=== PATIENT | female | born 1940 | race Hispanic/Latino ===

== ENCOUNTER 2021-04-21 07:52 | Day surgery (SDC) | payer OTHER, MEDICARE ==
[2021-04-18 12:52] LABS: Absolute Lymphocytes (CBC) 1.2 K/uL (0.7-4.9); Basophils % 0.6 % (0-1.3); Hematocrit 39.5 % (36.0-45.0); Lymphocytes % 27.4 % (15.3-44.8); RBC Red Blood Cell Count 4.18 M/uL (3.86-4.86)
--- NOTE | 2021-04-18 13:31 | RAD REPORT ---
EXAM DESCRIPTION: RAD - Chest Pa And Lat (2 Views) - 04/18/2021 1:09 pm CLINICAL HISTORY: pre-op sds, chest soft tissue mass removal pending COMPARISON: Two view chest December 10 TECHNIQUE: Frontal and lateral views of the chest were obtained. FINDINGS: The lungs are clear of an acute infiltrate or mass. Interstitial scarring changes are pres ent more notable in the lateral mid right lung field. This is a stable presentation. No hilar mass or lymphadenopathy. Heart size is normal and central vasculature is within normal limits. No pleural effusion or pneumothorax seen. No acute bone finding. Bones do appear osteopenic with accentuated k yphosis. Degenerative calcifications are seen along the left shoulder joint greater tuberosity. No ao rtic abnormality. IMPRESSION: No acute cardiopulmonary process. No significant change from comparison study.
[2021-04-21] MEDS: Ringers Lactate 1,000 ML IV ONE ×2 (08:30→08:50)
--- NOTE | 2021-04-21 09:16 | P.BOP ---
Preoperative diagnosis: chest wall tender subQ mass 3x3cm Postoperative diagnosis: same Primary procedure: Excisional biopsy chest wall tender subQ mass 3x3cm Estimated blood loss: <10cc Specimen: chest wall subQ mass Findings: mass Anesthesia: General Complications: None Transferred to: Recovery Room Condition: Good
[2021-04-21] MEDS ORDERED: HYDROCORTISONE SUC 100 MG INJ ONE (09:29)
[2021-04-21] MEDS ORDERED: FENTANYL CITR 100 MCG/2 ML ONE (09:30)
[2021-04-21] MEDS ORDERED: LIDOCAINE 2% MPF 5 ML VIAL ONE (09:30)
[2021-04-21] MEDS ORDERED: CEFAZOLIN/NS 1gm 1 GM/50 ML BAG ONE (09:30)
[2021-04-21] MEDS ORDERED: propofoL 200 MG/20 ML VIAL IV ONE (09:31)
[2021-04-21] MEDS ORDERED: ONDANSETRON 4 MG/2 ML VIAL ONE (09:31)
[2021-04-21] MEDS ORDERED: GLYCOPYRROLATE 0.2 MG/ML SYR ONE (09:32)
[2021-04-21] MEDS ORDERED: BUPIVACAINE 0.5% PF 10 ML VIAL ONE (09:38)
[2021-04-21] MEDS ORDERED: KETOROLAC 30 MG/ML INJ ONE (10:27)
--- NOTE | 2021-04-21 11:29 | OP ---
Date of Procedure: 04/21/2021 Surgeon: Harjinder cMqueen MD Preoperative Diagnosis: Chest wall subcutaneous tender mass 3 x 3 cm. Postoperative Diagnosis: Chest wall subcutaneous tender mass 3 x 3 cm. Procedure: Excisional biopsy of chest wall tender subcutaneous mass 3 x 3 cm. Specimen: Subcutaneous mass. Findings: Subcutaneous mass that does not penetrate the muscle or bone. It is on the chest wall reg ion just at the border between the chest and breast. Anesthesia: General plus local. Indication: This is the case of a female, who comes to us with a chest wall mass right at the origin of the breast and chest area. The patient claimed that she had a mammogram and is already negative. Did not take this mass. It is still there. It is obvious, it is palpable. She states increasing in size and she wants that removed. The benefits, alternatives, and risks of excisional biopsy of ch est wall mass fully explained, which include, but not limited to infection, bleeding, damage to adjac ent structures, anesthesia complication, recurrence, WA, and even . She understands she might n eed more than one surgical intervention. She understood this may not relieve any symptoms. She sign ed a consent. The area of concern was marked by me and the patient in the holding room. Procedure In Detail: The patient was brought to the operating room, placed in supine position. Anes thesia was done without complication. A time-out was called. Chest area was prepped and draped in u sual sterile fashion. Local anesthesia was applied followed by sharp incision in a wedge fashion. I ncision was carried down to deep subcutaneous tissue. This mass was right at the edge of the beginni ng of the breast and at the end of the midsternal region, so the mass was completely excised. I did not see the muscle or bone exposed or involved. Area was irrigated, hemostasis was obtained, and the area was closed with 3-0 chromic and subcutaneous tissue and then 3-0 chromic in a subcuticular fash ion with Steri-Strips on top. This was after hemostasis and irrigation was done. The patient tolera jhoana the procedure well. The patient was sent to recovery in stable condition. PRECIOUS/SUHAS Voice ID: [id number] Report ID: [id number]
--- NOTE | 2021-04-21 11:34 | DS ---
Diagnosis: Tender chest wall subcutaneous mass. Procedure: Excisional biopsy of tender chest wall subcutaneous mass. Disposition: Home. Activity: As tolerated. No heavy lifting. Plan: Follow up in my office in 1 week. Call for appointment at [phone]. Keep area dry for 48 marcos rs, then may shower. Keep Steri-Strip intact. Medications: Include Tylenol No.3 q.4 hours p.r.n. pain. PRECIOUS/SUHAS Voice ID: [id number] Report ID: [id number]
[2021-04-21] MEDS ORDERED: CODEINE 30MG/APAP 300MG TAB ONE (11:41)
[2021-04-21 14:03] VITALS: O2SAT 100
[2021-04-21 14:06] VITALS: BP 142/73; TEMP 98.1
== END 2021-04-21 11:25 | disposition home or self-care (01) ==
LOC: OR 07:52
PROVIDERS: ATTEND Surgery
PROC: 0JB60ZZ Excision of Chest Subcutaneous Tissue and Fascia, Open Approach (ICD-10-PCS; principal; 2021-04-21 09:15)
DX: L72.0 Epidermal cyst (principal); Z20.822 Contact with and (suspected) exposure to COVID-19
CPT/HCPCS: 85025; 80048; 36415; 88304; 71046; 11403; U0003; J2704; J3010; J0690; J7120; J1720; J2405; 88305

== ENCOUNTER 2021-10-02 21:41 | Emergency (ER) | payer OTHER, MEDICARE ==
--- OUTSIDE RECORDS SUMMARY | 2021-10-02 21:44 | XMS REPORT | Continuity of Care Document ---
:1940 Author Organization [facility] t Address [address] [place] [address] [place] [id number] Care Team Providers Name Role Phone Unavailable Unavailable Unavailable Problems This patient has no known problems. Allergies, Adverse Reactions, Alerts This patient has no known allergies or adverse reactions. Medications This patient has no known medications. Procedures This patient has no known procedures. Encounters Start End Encounter Admission Attending Care Care Encounter Source Date/Time Date/Time Type Type Clinicians Facility Department ID 2019-02-22 2019-02-22 Outpatient [facility] [id number] BL 09:19:00 09:19:00 Results This patient has no known results.
[2021-10-02 22:57] LABS: Absolute Lymphocytes (CBC) 1.1 K/uL (0.7-4.9); Hematocrit 35.2 % (36.0-45.0); Lymphocytes % 26.6 % (15.3-44.8); MPV 8.5 fL (7.6-11.3); RBC Red Blood Cell Count 3.67 M/uL (3.86-4.86)
[2021-10-02 23:18] LABS: Albumin 3.7 g/dL (3.4-5.0); Bilirubin Total 0.6 mg/dL (0.2-1.0); Potassium 3.8 mmol/L (3.5-5.1); Protein, Total 7.2 g/dL (6.4-8.2)
--- NOTE | 2021-10-03 02:05 | ER ---
Nurse's Notes [facility] Name: Gisselle Orozco Age: 80 yrs Sex: Female : 1940 Arrival Date: 10/02/2021 Time: 21:45 Bed 8 Private MD: Diagnosis: GI Bleed/ Gastrointestinal hemorrhage, unspecified Presentation: 10/02 21:50 Chief complaint: Patient states: I have had 6 bloody bowel movement since yesterday. jb4 Anything I eat I have diarrhea. I have had liquid stool on Wednesday and after that it was just soft. Coronavirus screen: At this time, the client does not indicate any symptoms associated with coronavirus-19. Ebola Screen: No symptoms or risks identified at this time. Initial Sepsis Screen: Does the patient meet any 2 criteria? No. Patient's initial sepsis screen is negative. Does the patient have a suspected source of infection? No. Patient's initial sepsis screen is negative. Risk Assessment: Do you want to hurt yourself or someone else? Patient reports no desire to harm self or others. Onset of symptoms was October 02, 2021. Transition of care: patient was not received from another setting of care. 21:50 Method Of Arrival: Ambulatory jb4 21:50 Acuity: GABRIEL 3 jb4 Historical: - Allergies: 21:55 No Known Allergies; jb4 - Home Meds: 21:55 Bactrim DS 800-160 mg Oral tab [Active]; Famotidine Oral [Active]; Prolia subcutaneous jb4 [Active]; Metoprolol Tartrate Oral [Active]; Prednisone Oral [Active]; rosuvastatin oral [Active]; Actemra subcutaneous [Active]; leflunomide oral [Active]; - PMHx: 21:55 GERD; Hyperlipidemia; Hypertension; Glaucoma; jb4 - PSHx: 21:55 lung biopsy; Cyst removal from chest; Appendectomy; Tonsillectomy; partial hysterectomy;jb4 - Immunization history:: Adult Immunizations up to date. - Social history:: Smoking status: Patient denies any tobacco usage or history of. Patient/guardian denies using alcohol, street drugs. Screenin:02 Abuse screen: Denies threats or abuse. Denies injuries from another. Nutritional lg3 screening: No deficits noted. Tuberculosis screening: No symptoms or risk factors identified. Fall Risk None identified. Assessment: 23:02 General: Appears in no apparent distress. comfortable, Behavior is calm, cooperative. lg3 Pain: Denies pain. Neuro: No deficits noted. Level of Consciousness is awake, alert, obeys commands, Oriented to person, place, time, situation. Cardiovascular: No deficits noted. Denies chest pain, shortness of breath. Respiratory: No deficits noted. Airway is patent Trachea midline Respiratory effort is even, unlabored, Respiratory pattern is regular, symmetrical. GI: Reports rectal bleeding, bloody stool. : No deficits noted. No signs and/or symptoms were reported regarding the genitourinary system. EENT: No deficits noted. No signs and/or symptoms were reported regarding the EENT system. Derm: No deficits noted. No signs and/or symptoms reported regarding the dermatologic system. Skin is intact, is healthy with good turgor, Skin is dry, Skin is pink, warm \T\ dry. Musculoskeletal: No deficits noted. No signs and/or symptoms reported regarding the musculoskeletal system. Circulation, motion, and sensation intact. Capillary refill < 3 seconds, Range of motion: intact in all extremities. 10/03 00:30 Reassessment: Pt transported to CT scan. ll3 00:55 Reassessment: No changes from previously documented assessment. Patient and/or family ll3 updated on plan of care and expected duration. Pain level reassessed. Patient is alert, oriented x 3, equal unlabored respirations, skin warm/dry/pink. Pt states she is hungry, ERP notified, DR requested we wait for CT results before eating any food, PT notified. 02:05 Reassessment: No changes from previously documented assessment. Patient and/or family ll3 updated on plan of care and expected duration. Pain level reassessed. Patient is alert, oriented x 3, equal unlabored respirations, skin warm/dry/pink. Vital Signs: 10/02 21:50 BP 181 / 93; Pulse 96; Resp 24; Temp 98.7(TE); Pulse Ox 100% on R/A; Weight 49.9 kg jb4 (R); Height 4 ft. 8 in. (142.24 cm) (R); Pain 0/10; 23:03 BP 131 / 61; Pulse 79; Resp 20; Pulse Ox 99% on R/A; ll3 10/03 00:55 BP 142 / 66; Pulse 75; Resp 18; Pulse Ox 100% on R/A; ll3 02:04 BP 115 / 56; Pulse 74; Resp 17; Pulse Ox 98% on R/A; ll3 10/02 21:50 Body Mass Index 24.66 (49.90 kg, 142.24 cm) jb4 ED Course: 10/02 21:45 Patient arrived in ED. kz 21:54 Triage completed. jb4 21:55 Arm band placed on right wrist. jb4 22:07 Baudilio Pulido MD is Attending Physician. kdr 22:50 Type And Screen Sent. lg3 22:50 CBC with Diff Sent. lg3 22:50 CMP Sent. lg3 22:50 Lipase Sent. lg3 23:02 Patient has correct armband on for positive identification. Bed in low position. Call lg3 light in reach. Side rails up X 1. 23:02 Inserted saline lock: 20 gauge in right antecubital area, using aseptic technique. lg3 Blood collected. 23:55 Grace Lizama, RN is Primary Nurse. lg3 10/03 00:58 CT Abd/Pelvis - IV Contrast Only In Process Unspecified. EDMS 02:23 No provider procedures requiring assistance completed. IV discontinued, intact, ll3 bleeding controlled, No redness/swelling at site. Pressure dressing applied. Administered Medications: No medications were administered Outcome: 02:04 Discharge ordered by . kdr 02:23 Discharged to home ambulatory, with family. ll3 02:23 Condition: stable 02:23 Discharge instructions given to patient, family, Instructed on discharge instructions, follow up and referral plans. medication usage, Demonstrated understanding of instructions, follow-up care, medications, Prescriptions given X 1. 02:23 Patient left the ED. ll3 Signatures: Dispatcher [employer] EDMS Baudilio Pulido MD MD kdr Ej Ramirez RN RN jb4 Grace Lizama, OXANA DAIGLE 3 Can Ellis RN RN ll3 Margareth Merida Corrections: (The following items were deleted from the chart) 10/02 21:59 21:55 Home Meds: Prednisone 10mg two tabls daily, Furosemide 20mg Daily, Omeprazole jb4 40mg Daily, Zetia 10mg Daily, Leflunomide 20mg Daily, [place] 3 two capsules twice daily, Atorvastatin 20mg Qhs, Bystolic 5mg Daily 6mg daily; jb4
--- NOTE | 2021-10-03 02:05 | EDPHYS ---
Physician Documentation [facility] Name: Gisselle Orozco Age: 80 yrs Sex: Female : 1940 Arrival Date: 10/02/2021 Time: 21:45 Bed 8 Private MD: ED Physician Baudilio Pulido HPI: 10/03 04:17 This 80 yrs old Female presents to ER via Ambulatory with complaints of Rectal kdr Bleeding. 04:17 The patient presents to the emergency department with bleeding from the rectum/anus, kdr that is mild. Onset: The symptoms/episode began/occurred 2 day(s) ago. Context: the patient has no known special context relating to the rectal area complaint(s). Modifying factors: The symptoms are alleviated by nothing, The symptoms are aggravated by nothing. Eating. Associate signs and symptoms: The patient has no apparent associated signs or symptoms. The patient has experienced a previous episode. The patient has not recently seen a physician. Patient states that she has had 6 bloody bowel movements since yesterday. She states that anything she eats causes her to have diarrhea. She also states that she has had liquid stool off and on since Wednesday. Patient does not appear in any acute distress and she is otherwise nonfocal alert and appropriate. She does not look toxic or acutely ill in any way at this time . Historical: - Allergies: 10/02 21:55 No Known Allergies; jb4 - Home Meds: 21:55 Bactrim DS 800-160 mg Oral tab [Active]; Famotidine Oral [Active]; Prolia subcutaneous jb4 [Active]; Metoprolol Tartrate Oral [Active]; Prednisone Oral [Active]; rosuvastatin oral [Active]; Actemra subcutaneous [Active]; leflunomide oral [Active]; - PMHx: 21:55 GERD; Hyperlipidemia; Hypertension; Glaucoma; jb4 - PSHx: 21:55 lung biopsy; Cyst removal from chest; Appendectomy; Tonsillectomy; partial hysterectomy;jb4 - Immunization history:: Adult Immunizations up to date. - Social history:: Smoking status: Patient denies any tobacco usage or history of. Patient/guardian denies using alcohol, street drugs. ROS: 10/03 04:17 Constitutional: Negative for fever, chills, and weight loss, Eyes: Negative for injury, kdr pain, redness, and discharge, ENT: Negative for injury, pain, and discharge, Neck: Negative for injury, pain, and swelling, Cardiovascular: Negative for chest pain, palpitations, and edema, Respiratory: Negative for shortness of breath, cough, wheezing, and pleuritic chest pain, Back: Negative for injury and pain, : Negative for injury, bleeding, discharge, and swelling, MS/Extremity: Negative for injury and deformity, Skin: Negative for injury, rash, and discoloration, Neuro: Negative for headache, weakness, numbness, tingling, and seizure activity. Psych: Negative for depression, anxiety, suicide ideation, homicidal ideation, and hallucinations, Allergy/Immunology: Negative for hives, rash, and allergies, Endocrine: Negative for neck swelling, polydipsia, polyuria, polyphagia, and marked weight changes, Hematologic/Lymphatic: Negative for swollen nodes, abnormal bleeding, and unusual bruising. Abdomen/GI: Positive for abdominal pain, nausea, Negative for nausea, vomiting, rectal bleeding. Exam: 04:17 Constitutional: This is a well developed, well nourished patient who is awake, alert, kdr and in no acute distress. Head/Face: Normocephalic, atraumatic. Eyes: Pupils equal round and reactive to light, extra-ocular motions intact. Lids and lashes normal. Conjunctiva and sclera are non-icteric and not injected. Cornea within normal limits. Periorbital areas with no swelling, redness, or edema. Neck: Trachea midline, no thyromegaly or masses palpated, and no cervical lymphadenopathy. Supple, full range of motion without nuchal rigidity, or vertebral point tenderness. No Meningismus. Chest/axilla: Normal chest wall appearance and motion. Nontender with no deformity. No lesions are appreciated. Cardiovascular: Regular rate and rhythm with a normal S1 and S2. No gallops, murmurs, or rubs. Normal PMI, no JVD. No pulse deficits. Respiratory: Lungs have equal breath sounds bilaterally, clear to auscultation and percussion. No rales, rhonchi or wheezes noted. No increased work of breathing, no retractions or nasal flaring. Back: No spinal tenderness. No costovertebral tenderness. Full range of motion. Skin: Warm, dry with normal turgor. Normal color with no rashes, no lesions, and no evidence of cellulitis. MS/ Extremity: Pulses equal, no cyanosis. Neurovascular intact. Full, normal range of motion. Neuro: Awake and alert, GCS 15, oriented to person, place, time, and situation. Cranial nerves II-XII grossly intact. Motor strength 5/5 in all extremities. Sensory grossly intact. Cerebellar exam normal. Normal gait. Psych: Awake, alert, with orientation to person, place and time. Behavior, mood, and affect are within normal limits. 04:17 Abdomen/GI: Inspection: abdomen appears normal, Bowel sounds: active, Palpation: Rectal exam: rectal tone normal, Stool: guaiac negative, guaiac positive. Vital Signs: 10/02 21:50 BP 181 / 93; Pulse 96; Resp 24; Temp 98.7(TE); Pulse Ox 100% on R/A; Weight 49.9 kg jb4 (R); Height 4 ft. 8 in. (142.24 cm) (R); Pain 0/10; 23:03 BP 131 / 61; Pulse 79; Resp 20; Pulse Ox 99% on R/A; ll3 10/03 00:55 BP 142 / 66; Pulse 75; Resp 18; Pulse Ox 100% on R/A; ll3 02:04 BP 115 / 56; Pulse 74; Resp 17; Pulse Ox 98% on R/A; ll3 10/02 21:50 Body Mass Index 24.66 (49.90 kg, 142.24 cm) jb4 MDM: 02:04 Patient medically screened. [facility] 04:17 Counseling: I had a detailed discussion with the patient and/or guardian regarding: the [facility] historical points, exam findings, and any diagnostic results supporting the discharge/admit diagnosis, lab results, radiology results, the need for outpatient follow up. 04:21 Data reviewed: vital signs, nurses notes, diagnostic data from outside facility, old [facility] medical records, lab test result(s), EKG, radiologic studies. 10/02 22:08 Order name: CBC with Diff; Complete Time: 00:40 kdr 10/02 22:08 Order name: CMP; Complete Time: 00:40 kdr 10/02 22:08 Order name: Lipase; Complete Time: 00:40 kdr 10/02 22:08 Order name: IV Saline Lock; Complete Time: 22:50 kdr 10/02 22:08 Order name: Type And Screen; Complete Time: 00:40 kdr 10/02 23:43 Order name: CT Abd/Pelvis - IV Contrast Only kdr 10/02 22:08 Order name: Labs collected and sent; Complete Time: 22:50 kdr Administered Medications: No medications were administered Disposition Summary: 10/03/21 02:04 Discharge Ordered Location: Home kdr Problem: new kdr Symptoms: have improved kdr Condition: Stable kdr Diagnosis - GI Bleed/ Gastrointestinal hemorrhage, unspecified kdr Followup: kdr - With: Private Physician - When: 2 - 3 days - Reason: If symptoms return, Further diagnostic work-up, Recheck today's complaints, Continuance of care, Re-evaluation by your physician Discharge Instructions: - Discharge Summary Sheet kdr - Gastrointestinal Bleeding kdr - Rectal Bleeding kdr Forms: - Medication Reconciliation Form kdr - Thank You Letter kdr Prescriptions: - Pepcid 20 mg Oral Tablet - take 1 tablet by ORAL route once daily; 20 tablet; Refills: 0, Product kdr Selection Permitted Signatures: Dispatcher [employer] EDMS Baudilio Pulido MD MD kdr Ej Ramirez, RN RN jb4 Corrections: (The following items were deleted from the chart) 10/02 21:59 21:55 Home Meds: Prednisone 10mg two tabls daily, Furosemide 20mg Daily, Omeprazole jb4 40mg Daily, Zetia 10mg Daily, Leflunomide 20mg Daily, [place] 3 two capsules twice daily, Atorvastatin 20mg Qhs, Bystolic 5mg Daily 6mg daily; jb4
[2021-10-03 09:46] VITALS: TEMP 98.7
[2021-10-03 09:51] VITALS: BP 115/56; O2SAT 98
--- NOTE | 2021-10-03 11:30 | RAD REPORT ---
EXAM DESCRIPTION: CT - Abdomen Pelvis W Contrast - 10/03/2021 6:49 am CLINICAL HISTORY: 80 years Female, GI bleed TECHNIQUE: Helical CT axial images are obtained from the lung bases to the pubic symphysis with IV c ontrast. No oral contrast was administered. Multiplanar reconstruction. This exam was performed accor ding to our departmental dose-optimization program, which includes automated exposure control, adjust ment of the mA and/or kV according to patient size and/or use of iterative reconstruction technique. COMPARISON: 07/02/2021 FINDINGS: LUNG BASES: No basilar consolidation or effusions. LIVER: Normal in size. Normal attenuation. No focal masses. HEPATOBILIARY: Normal-appearing gallbladder. No intra- or extrahepatic ductal dilatation. SPLEEN: Normal size. PANCREAS: Normal size and contour. No focal mass. ADRENAL GLANDS: Normal size. No adrenal masses. KIDNEYS: Bilateral kidneys are normal in size without obstructing calculi or hydronephrosis. No ne phrolithiasis. No significant cysts are present. No focal solid mass. BOWEL AND MESENTERY: Small hiatal hernia. No small or large bowel dilatation. Descending and sigmoid colon diverticulosis. The appendix is not visualized, no secondary signs of appendicitis. No abnor mal mesenteric lymphadenopathy. No free fluid or pneumoperitoneum. RETROPERITONEUM: Normal caliber abdominal aorta without aneurysm. Mild ASVD. No abnormal retroperi toneal lymphadenopathy. PELVIS: Urinary bladder is unremarkable. Uterus and adnexal structures are unremarkable. ABDOMINAL WALL: The abdominal wall is intact. BONES: No suspicious osseous lytic or blastic lesions seen. IMPRESSION: 1. No acute intra-abdominal pelvic disease. 2. Descending and sigmoid colon diverticulosis. 3. Small hiatal hernia. Electronically signed by: Nicholas Pearl MD 10/03/2021 1:29 AM CDT Due to temporary technical issues with the PACS/Fluency reporting system, reports are being signed by the in house radiologist without review as a courtesy to ensure prompt reporting. The interpreting r adiologist is fully responsible for the content of the report.
== END 2021-10-03 02:23 | disposition home or self-care (01) ==
LOC: ER 21:41
DX: K92.2 Gastrointestinal hemorrhage, unspecified (principal); R11.0 Nausea; I10 Essential (primary) hypertension; E78.5 Hyperlipidemia, unspecified; K21.9 Gastro-esophageal reflux disease without esophagitis
CPT/HCPCS: 85025; 36415; 86900; 86850; 86901; 83690; 80053; 74177; 99284; Q9967

== ENCOUNTER 2024-01-31 19:35 | Emergency (ER) | payer OTHER, MEDICARE ==
[2024-01-31] MEDS ORDERED: KETOROLAC 30 MG/ML INJ ONE (23:33)
[2024-01-31] MEDS ORDERED: NA CHLORIDE 0.9% 0 ML ONE (23:34)
[2024-01-31] MEDS ORDERED: MORPHINE 2 MG/ML SYR ONE (23:34)
--- NOTE | 2024-02-01 00:32 | ER ---
Nurse's Notes [facility] Name: Gisselle Orozco Age: 83 yrs Sex: Female : 1940 Arrival Date: 01/31/2024 Time: 19:35 Bed External Waiting [facility] MD: Diagnosis: Abdominal pain, unspecified Presentation: 01/30 20:43 Chief complaint: Patient states: Upper abdominal pain onset today. Pt states that the cm10 pain radiates to her back. Pt reports 1 episode of vomiting. Coronavirus screen: Client denies travel out of the [place] in the last 14 days. At this time, the client does not indicate any symptoms associated with coronavirus-19. Ebola Screen: Patient denies travel to an Ebola-affected area in the 21 days before illness onset. No symptoms or risks identified at this time. Initial Sepsis Screen: Does the patient meet any 2 criteria? No. Patient's initial sepsis screen is negative. Does the patient have a suspected source of infection? No. Patient's initial sepsis screen is negative. Risk Assessment: Do you want to hurt yourself or someone else? Patient reports no desire to harm self or others. Onset of symptoms was January 31, 2024. 20:43 Method Of Arrival: Wheelchair cm10 20:43 Acuity: GABRIEL 3 cm10 Triage Assessment: 20:45 General: Appears in no apparent distress. uncomfortable, Behavior is calm, cooperative. cm10 Neuro: No deficits noted. Level of Consciousness is awake, alert, obeys commands, Oriented to person, place, time, situation, Appropriate for age. Respiratory: No deficits noted. Airway is patent Respiratory effort is even, unlabored, Respiratory pattern is regular, symmetrical. Historical: - Allergies: 20:44 No Known Allergies; cm10 - PMHx: 20:44 GERD; Hyperlipidemia; Glaucoma; Hypertension; cm10 - PSHx: 20:44 Appendectomy; Cyst removal from chest; partial hysterectomy; lung biopsy; Tonsillectomy;cm10 - Immunization history:: Adult Immunizations up to date. - Infectious Disease History:: Denies. - Social history:: Smoking status: Patient denies any tobacco usage or history of. - Family history:: not pertinent. Assessment: 23:45 Reassessment: Pt called from Lobby. No answer. Pt no longer in lobby. Provider notified.jb4 Vital Signs: 20:43 BP 195 / 81; Pulse 73; Resp 18; Temp 97.8(O); Pulse Ox 100% on R/A; Weight 47.63 kg; cm10 Height 4 ft. 8 in. ; Pain 7/10; 20:43 Body Mass Index 23.54 (47.63 kg, 142.24 cm) cm10 20:43 Pain Scale: Adult cm10 Beau Coma Score: 01/31 00:50 Eye Response: spontaneous(4). Motor Response: obeys commands(6). Verbal Response: sp4 oriented(5). Total: 15. ED Course: 01/30 19:38 Patient arrived in ED. im 20:05 Yoshi Silvestre MD is Attending Physician. sp4 20:44 Triage completed. cm10 20:45 Arm band placed on Patient placed in waiting room. cm10 23:31 Immanuel Geller, RN is Primary Nurse. mt4 Administered Medications: No medications were administered Outcome: 23:45 Eloped from waiting room, after seeing physician Time discovered patient gone: January jb4 2023 at 23:45 08 00:31 Discharge ordered by . sp4 07:17 Patient left the ED. jb4 Signatures: Ej Ramirez, RN RN jb4 Yoshi Silvestre MD MD sp4 Laisha Weems Clarissa, RN RN cm10 Immanuel Geller, RN RN mt4
--- NOTE | 2024-02-01 00:32 | EDPHYS ---
Physician Documentation [facility] Name: Gisselle Orozco Age: 83 yrs Sex: Female : 1940 Arrival Date: 01/31/2024 Time: 19:35 Bed External Waiting Private MD: ED Physician Yoshi Silvestre HPI: 01/30 20:05 This 83 yrs old Female presents to ER via Unassigned with complaints of sp4 Vomiting, Abdominal Pain. 01/31 00:50 ED patient is 83-year-old female presents with epigastric and right upper quadrant sp4 abdominal pain with radiation into her back.. Patient reported nausea vomiting. Pain started acutely today. No similar previous pains. History of appendectomy. . 00:50 Onset of symptoms 1:30 PM today.. sp4 Historical: - Allergies: 01/30 20:44 No Known Allergies; cm10 - PMHx: 20:44 GERD; Hyperlipidemia; Glaucoma; Hypertension; cm10 - PSHx: 20:44 Appendectomy; Cyst removal from chest; partial hysterectomy; lung biopsy; Tonsillectomy;cm10 - Immunization history:: Adult Immunizations up to date. - Infectious Disease History:: Denies. - Social history:: Smoking status: Patient denies any tobacco usage or history of. - Family history:: not pertinent. ROS: 01/31 00:50 Constitutional: Negative for fever, chills, and weight loss, Positive Abdominal pain. sp4 Positive nausea vomiting, positive epigastric pain, positive right upper quadrant pain Eyes: Negative for injury, pain, redness, and discharge, All other systems are negative, Exam: 00:50 Constitutional: This is a well developed, well nourished patient who is awake, alert, sp4 and in no acute distress. Head/Face: Normocephalic, atraumatic. Eyes: Pupils equal round and reactive to light, extra-ocular motions intact. Lids and lashes normal. Conjunctiva and sclera are not injected. Cornea within normal limits. Periorbital areas with no swelling, redness, or edema. ENT: Nares patent. No nasal discharge, no septal abnormalities noted. Tympanic membranes are normal and external auditory canals are clear. Oropharynx with no redness, swelling, or masses, exudates, or evidence of obstruction, uvula midline. Mucous membranes moist. Neck: Trachea midline, no thyromegaly or masses palpated, and no cervical lymphadenopathy. Supple, full range of motion without nuchal rigidity, or vertebral point tenderness. Chest/axilla: Normal chest wall appearance and motion. Nontender with no deformity. No lesions are appreciated. Cardiovascular: Regular rate and rhythm with a normal S1 and S2. No gallops, murmurs, or rubs. Normal PMI, no JVD. No pulse deficits. Respiratory: Lungs have equal breath sounds bilaterally, clear to auscultation and percussion. No rales, rhonchi or wheezes noted. No increased work of breathing, no retractions or nasal flaring. Abdomen/GI: Soft, with normal bowel sounds. No distension or tympany. No guarding or rebound. Positive right upper quadrant tenderness, positive epigastric tenderness. Back: No spinal tenderness. No costovertebral tenderness. Skin: Warm, dry with normal turgor. Normal color with no rashes, no lesions, and no evidence of cellulitis. MS/ Extremity: Pulses equal, no cyanosis. Neurovascular intact. Full, normal range of motion. Neuro: Awake and alert, GCS 15, oriented to person, place, time, and situation. Cranial nerves II-XII grossly intact. Motor strength 5/5 in all extremities. Sensory grossly intact. Psych: Awake, alert, with orientation to person, place and time. Behavior, mood, and affect are within normal limits Vital Signs: 01/30 20:43 BP 195 / 81; Pulse 73; Resp 18; Temp 97.8(O); Pulse Ox 100% on R/A; Weight 47.63 kg; cm10 Height 4 ft. 8 in. ; Pain 7/10; 20:43 Body Mass Index 23.54 (47.63 kg, 142.24 cm) cm10 20:43 Pain Scale: Adult cm10 Beau Coma Score: 01/31 00:50 Eye Response: spontaneous(4). Motor Response: obeys commands(6). Verbal Response: sp4 oriented(5). Total: 15. MDM: 01/30 20:12 Patient medically screened. sp4 01/31 00:50 Differential diagnosis: Nonspecific abd pain, gastritis, viral gastroenteritis, sp4 gastroenteritis. Data reviewed: vital signs, nurses notes, old medical records. ED course: This is a 83-year-old female who presents with abdominal pain nausea vomiting. Also right upper quadrant pain. Patient was assessed in the waiting area. Patient was advised to remain in the waiting room until we can manage to bring her back to one of the rooms for full abdominal workup. Patient decided to go home. At this time patient is able to make her medical decisions. Will provide informed discharge. Will recommend to return in case patient changes her mind about abdominal workup. . 01/30 20:14 Order name: IV Saline Lock sp4 01/30 20:14 Order name: Labs collected and sent sp4 01/30 20:34 Order name: EKG - Nurse/Tech sp4 Administered Medications: No medications were administered Disposition Summary: 02/01/24 00:31 Discharge Ordered Notes: Location: Home sp4 Problem: new sp4 Symptoms: have improved sp4 Condition: Stable sp4 Diagnosis - Abdominal pain, unspecified sp4 Followup: sp4 - With: Private Physician - When: 7 - 10 days - Reason: Recheck today's complaints Discharge Instructions: - Discharge Summary Sheet sp4 - Abdominal Pain, Adult sp4 Forms: - Patient Portal Instructions sp4 Signatures: Dispatcher [employer] Yoshi Damon MD MD sp4 Mary Mcqueen RN RN cm10 Corrections: (The following items were deleted from the chart) 01:10 01/30 20:34 Chest Abdomen Pelvis W Con+CT.RAD.BRZ ordered. [facility] 01/31 05:53 01/30 20:15 COMPREHENSIVE METABOLIC PANEL+[facility]LAB[facility] 01/30 20:15 LIPASE+[facility] 01/30 20:15 Urinalysis+U.LAB.[facility] 01/30 20:35 Troponin High Sensitivity+C[facility]LAB[facility] 01/30 20:35 PROBNP+C[facility]LAB[facility] 01/30 20:15 CBC+H.LAB.BRZ ordered. [facility]
[2024-02-01 07:28] VITALS: BP 195/81; TEMP 97.8; O2SAT 100
== END 2024-02-01 07:17 | disposition home or self-care (01) ==
LOC: ER 19:35
DX: R10.13 Epigastric pain (principal); R10.11 Right upper quadrant pain; R11.2 Nausea with vomiting, unspecified
CPT/HCPCS: J2270; J7030